=== PATIENT | female | born 1995 | race Caucasian/White ===

== ENCOUNTER 2017-06-05 01:24 | Emergency (ER) | payer SELFPAY ==
[2017-06-05 02:48] LABS: #Eosinphils 0.1 thou/uL (0.0-0.7); #Lymphocytes 1.5 thou/uL (1.20-3.40); #Monocytes 0.8 thou/uL (0.11-0.59); #Neutrophils 12.2 thou/uL (1.40-6.50); %Basophils 0.2 % (0.0-1.0); %Eosinophils 0.5 % (0.0-10.0); %Lymphocytes 10.5 % (28.0-48.0); %Monocytes 5.4 % (0.0-4.0); %Neutrophils 83.4 % (31.0-61.0); Hemoglobin 13.9 g/dL (12.0-16.0); Mean Corpuscular HGB CONC 33.7 g/dL (32.0-36.0); Mean Corpuscular Hemoglobin 31.2 pg (25.0-35.0); Mean Corpuscular Volume 92.5 fl (77.0-87.0); Mean Platelet Volume 7.9 fL (7.4-10.4); Platelet Count 270 thou/uL (130-400); RBC Distribution Width 11.4 % (11.5-14.5); Red Blood Cell (RBC) Count 4.47 mill/uL (4.00-5.20); White Blood Cell (WBC) Count 14.6 thou/uL (4.8-10.8)
[2017-06-05 03:07] LABS: Pregnancy Test - Urine (BHCG) Negative (Negative); Pregu Control Background? CLEAR/WHITE (CLR/WHITE); Pregu Control Bar Appear? YES (CONTROL BAR)
[2017-06-05 03:08] LABS: Bilirubin Negative (Negative); Blood, Urine Large (Negative); Clarity CLOUDY (Clear); Glucose, Urine (Dipstick) Negative (Negative); Leukocyte Small (Negative); Nitrite Negative (Negative); Protein, Urine (Dipstick) 30 mg/dL (Neg-Trace); Specific Gravity, Urine 1.024 (1.002-1.036); Urobilinogen 0.2 mg/dL (0.2-1.0); pH, Urine 5.5 (5.0-9.0)
[2017-06-05 03:08] LABS: ALT (SGPT) 21 U/L (8-55); AST (SGOT) 26 U/L (5-34); Albumin 4.9 g/dL (3.5-5.0); Alkaline Phosphatase 83 U/L (40-150); Anion Gap 16 mmol/L (10-20); BUN (Urea Nitrogen) 15 mg/dL (7.0-18.7); Bilirubin, Total 0.6 mg/dL (0.2-1.2); Calc. Creatinine Clearance 0 mL/min (70-130); Calcium 10.4 mg/dL (7.8-10.44); Carbon Dioxide 21 mmol/L (22-29); Chloride 105 mmol/L (98-107); Estimated GFR-MDRD 79; Globulin 3.3 g/dL (2.4-3.5); Glucose 127 mg/dL (70-105); Lipase 14 U/L (8-78); Potassium 3.7 mmol/L (3.5-5.1); Protein, Total 8.2 g/dL (6.0-8.3); Sodium 138 mmol/L (136-145)
[2017-06-05 03:09] LABS: Bacteria/HPF None Seen HPF (None Seen); Hyaline Casts/LPF 4-6 HYALINE CAST LPF (0-3 Hyaline); Pathc Cast-AUWi Flag 0.94 (0-2.49); RBC/HPF GREATER THAN 50-TNTC HPF (0-3)
[2017-06-05 03:11] LABS: Specific Gravity 1.024 (1.002-1.036)
[2017-06-05] MEDS ORDERED: Ketorolac Tromethamine 30 MG/ML VIAL ONE (04:30)
[2017-06-05] MEDS ORDERED: Ondansetron HCl/PF 4 MG/2 ML Vial ONE (04:30)
--- NOTE | 2017-06-05 08:03 | CT ---
PRELIMINARY REPORT/[facility]/EMERGENCY AFTER HOURS PROCEDURE: EXAM: CT Abdomen and Pelvis Without Intravenous Contrast CLINICAL HISTORY: 21 years old, female; Pain; Abdominal pain; Generalized; Patient HX: R/O stone TECHNIQUE: Axial computed tomography images of the abdomen and pelvis without intravenous contrast. Coronal reformatted images were created and reviewed. COMPARISON: No relevant prior studies available. FINDINGS: Lower thorax: No acute findings. ABDOMEN: Liver: No acute findings. Gallbladder and bile ducts: No acute findings. No calcified stones. No ductal dilation. Pancreas: No acute findings. No ductal dilation. Spleen: No acute findings. No splenomegaly. Adrenals: No acute findings. No mass. Kidneys and ureters: Two, approximately 2 mm nonobstructing right renal stones. Solitary 1-2 mm midpo le left renal stone. Stomach and bowel: No acute findings. No obstruction. No mucosal thickening. Appendix: No findings to suggest acute appendicitis. PELVIS: Bladder: No acute findings. No stones. Reproductive: Unremarkable as visualized. ABDOMEN and PELVIS: Intraperitoneal space: No acute findings. No free air. No significant fluid collection. Bones/joints: No acute fracture. No dislocation. Soft tissues: No acute findings. Vasculature: No acute findings. No abdominal aortic aneurysm. Lymph nodes: No acute findings. No enlarged lymph nodes. IMPRESSION: Nonobstructing renal stones. Thank you for allowing us to participate in the care of your patient. Dictated and Authenticated by: Deidre Barreto MD 06/05/2017 5:23 AM Central Time ([place] & [place]) FINAL REPORT EMERGENT AFTER HOURS CT OF THE ABDOMEN AND PELVIS WITHOUT CONTRAST: FINDINGS/IMPRESSION: I agree with the findings and impression given in the preliminary report per [facility] physician. Bilateral nonobstructing renal calcifications. POS: [facility]
== END 2017-06-05 06:30 | disposition home or self-care (01) ==
LOC: ERS 01:24
DX: R10.31 Right lower quadrant pain (principal)
CPT/HCPCS: 36415; 74176; 80053; 81003; 81015; 81025; 82150; 83690; 85025; 96361; 96374; 96375; J1885; J2405

== ENCOUNTER 2020-09-13 22:15 | Inpatient (IN) | payer OTHER, SELFPAY ==
[~2020-09-13 22:15] MED LIST: Iopamidol-370 76% 500 ML 1 ML ONE
[2020-09-13] MEDS ORDERED: Ondansetron PF 4 MG/2 ML Vial ONE (22:57)
[2020-09-13] MEDS ORDERED: Morphine 4 MG/ML VIAL ONE (22:57)
[2020-09-13 23:20] LABS: BHCG - Serum Negative (NEGATIVE); Pregs Control Background? CLEAR/WHITE (CLR/WHITE); Pregs Control Bar Appear? YES (CONTROL BAR)
[2020-09-13 23:26] LABS: Hemoglobin 13.1 g/dL (12.0-16.0); Mean Corpuscular HGB CONC 34.9 g/dL (32.0-36.0); Mean Corpuscular Hemoglobin 34.3 pg (27.0-31.0); Mean Corpuscular Volume 98.4 fL (78.0-98.0); Platelet Count 304 thou/uL (130-400); RBC Distribution Width 11.5 % (11.5-14.5); Red Blood Cell (RBC) Count 3.81 mill/uL (4.20-5.40); White Blood Cell (WBC) Count 17.8 thou/uL (4.8-10.8)
[2020-09-13 23:47] LABS: Lymphocytes 15 % (21-51); MDiff Complete? YES; Monocytes 4 % (0-10); Neutrophil 79 % (42-75); Platelet Morphology Comment Appears Adequate; Reactive Lymphocytes 2 % (0-10)
[2020-09-14] MEDS ORDERED: Piperacillin/Tazobactam 3.375 GM VIAL ONE (00:24)
[2020-09-14] MEDS ORDERED: Morphine 4 MG/ML VIAL ONE (00:24)
[2020-09-14] MEDS ORDERED: Boostrix 0.5 ML (Tdap) VIAL ONE (00:24)
[2020-09-14 00:43] LABS: ALT (SGPT) 13 U/L (8-55); AST (SGOT) 22 U/L (5-34); Albumin 4.1 g/dL (3.5-5.0); Alcohol Less than 10 mg/dL (Less than 10); Alkaline Phosphatase 57 U/L (40-110); Anion Gap 15 mmol/L (10-20); BUN (Urea Nitrogen) 9 mg/dL (7.0-18.7); Bilirubin, Total 0.3 mg/dL (0.2-1.2); Calc. Creatinine Clearance 0 mL/min (70-130); Calcium 8.5 mg/dL (7.8-10.44); Carbon Dioxide 19 mmol/L (22-29); Chloride 106 mmol/L (98-107); Globulin 2.3 g/dL (2.4-3.5); Glucose 170 mg/dL (70-105); Lipase 45 U/L (8-78); Protein, Total 6.4 g/dL (6.0-8.3); Sodium 137 mmol/L (136-145)
[2020-09-14] MEDS ORDERED: Midazolam HCl 2 mg/2 ml Vial ONE (01:15)
[2020-09-14] MEDS ORDERED: Fentanyl 250 MCG/5 ML VIAL ONE (01:15)
[2020-09-14] MEDS ORDERED: Ondansetron PF 4 MG/2 ML Vial ONE (01:26)
[2020-09-14] MEDS ORDERED: Ketorolac Tromethamine 30 MG/ML VIAL ONE (01:26)
[2020-09-14] MEDS ORDERED: PROPOFOL 200 MG/20 ML VIAL ONE (01:26)
[2020-09-14] MEDS ORDERED: Dexamethasone 20 MG/5 ML VIAL ONE (01:26)
[2020-09-14] MEDS ORDERED: Succinylcholine 200 MG/10 ml SYRINGE FS ONE (01:26)
[2020-09-14] MEDS ORDERED: Lidocaine 1% PF 5 ML VIAL ONE (01:26)
[2020-09-14] MEDS ORDERED: Rocuronium Bromide 10 MG/ML (10ML VIAL) ONE (01:26)
[2020-09-14] MEDS ORDERED: Glycopyrrolate 0.2 MG/ML 5 ML SYRINGE ONE (01:26)
[2020-09-14 01:32] LABS: SARS-CoV-2 NAA Rapid Test Not Detected (NotDetected)
[2020-09-14] MEDS ORDERED: diphenhydrAMINE 25 MG CAP PO PRN (01:39)
[2020-09-14] MEDS ORDERED: Zolpidem Tartrate 5 MG TAB PO PRN (01:39)
[2020-09-14] MEDS ORDERED: Naloxone HCl 0.4 mg/ml Vial IV PRN (01:39)
[2020-09-14] MEDS ORDERED: diphenhydrAMINE 50 MG/ML VIAL IM PRN (01:39)
[2020-09-14] MEDS ORDERED: Promethazine HCl 25 MG/ML VIAL SLOW IVP PRN (01:39)
[2020-09-14] MEDS ORDERED: diphenhydrAMINE 50 MG/ML VIAL IVP PRN (01:39)
[2020-09-14] MEDS ORDERED: fentaNYL Citrate/PF 2,000 MCG in Sodium Chloride 0.9% 60 ML IV PRN (01:39)
[2020-09-14] MEDS ORDERED: Ondansetron HCl/PF 4 MG/2 ML Vial IVP PRN (01:39)
[2020-09-14] MEDS ORDERED: Promethazine HCl 25 MG/ML VIAL IM PRN ×2 (01:39)
[2020-09-14] MEDS ORDERED: Communication Order-Pharmacy FS SCH (01:45)
[2020-09-14] MEDS ORDERED: Dextrose 5% in Water 1,000 ML IV PRN (03:28)
[2020-09-14] MEDS ORDERED: Meperidine HCl/PF 25 MG/ML VIAL ONE (03:28)
[2020-09-14] MEDS ORDERED: Dextrose 50% Abboject 50 ML SYRINGE SLOW IVP PRN (03:28)
[2020-09-14] MEDS ORDERED: Ondansetron PF 4 MG/2 ML Vial IVP PRN (03:28)
[2020-09-14 05:21] LABS: Hemoglobin 12.7 g/dL (12.0-16.0); Mean Corpuscular HGB CONC 33.3 g/dL (32.0-36.0); Mean Corpuscular Hemoglobin 33.3 pg (27.0-31.0); Platelet Count 206 thou/uL (130-400); RBC Distribution Width 11.7 % (11.5-14.5); Red Blood Cell (RBC) Count 3.81 mill/uL (4.20-5.40); White Blood Cell (WBC) Count 16.1 thou/uL (4.8-10.8)
[2020-09-14] MEDS: D5 1/2 NS w/20 mEq KCL 1,000 ML IV SCH ×3 (05:34→20:07)
[2020-09-14 05:35] LABS: Anion Gap 12 mmol/L (10-20); BUN (Urea Nitrogen) 7 mg/dL (7.0-18.7); Calc. Creatinine Clearance 0 mL/min (70-130); Calcium 7.9 mg/dL (7.8-10.44); Carbon Dioxide 18 mmol/L (22-29); Chloride 112 mmol/L (98-107); Glucose 147 mg/dL (70-105); Sodium 138 mmol/L (136-145)
[2020-09-14 05:41] LABS: Band 26 % (5-11); Lymphocytes 4 % (21-51); MDiff Complete? YES; Metamyelocyte 1 % (0-0); Monocytes 9 % (0-10); Neutrophil 60 % (42-75); Platelet Morphology Comment Appears Adequate
[2020-09-14 05:46] VITALS: BMI 20.2
[2020-09-14] MEDS: Famotidine/PF 20 mg/2ml Vial SLOW IVP SCH ×2 (09:03→20:04)
[2020-09-14] MEDS: Enoxaparin Sodium 40 MG/0.4 ML SYRINGE SC SCH (09:03)
[2020-09-14] MEDS: Ketorolac Tromethamine 30 MG/ML VIAL IVP SCH ×3 (09:04→20:05)
[2020-09-14] MEDS ORDERED: Docusate 100 MG CAP PO PRN (12:00)
[2020-09-14] MEDS: Ondansetron PF 4 MG/2 ML Vial IVP PRN (12:27)
[2020-09-14] MEDS: Senokot S 8.6-50 MG TAB PO SCH (20:05)
[2020-09-14] MEDS: HYDROcodone/Acetaminophen 10/325 mg Tablet PO PRN (23:42)
[2020-09-15] MEDS: D5 1/2 NS w/20 mEq KCL 1,000 ML IV SCH ×2 (01:32→11:13)
[2020-09-15] MEDS: Ketorolac Tromethamine 30 MG/ML VIAL IVP SCH ×4 (04:01→20:31)
[2020-09-15] MEDS: HYDROcodone/Acetaminophen 10/325 mg Tablet PO PRN ×4 (06:20→19:22)
[2020-09-15] MEDS: Enoxaparin Sodium 40 MG/0.4 ML SYRINGE SC SCH (08:23)
[2020-09-15] MEDS: Senokot S 8.6-50 MG TAB PO SCH ×2 (08:23→20:31)
[2020-09-15] MEDS: Famotidine/PF 20 mg/2ml Vial SLOW IVP SCH ×2 (08:23→20:31)
[2020-09-15] MEDS: Ondansetron PF 4 MG/2 ML Vial IVP PRN (19:24)
[2020-09-15] MEDS: Lactated Ringer's 1,000 ML IV SCH (20:41)
[2020-09-16] MEDS: Ketorolac Tromethamine 30 MG/ML VIAL IVP SCH ×2 (03:01→07:59)
[2020-09-16] MEDS: Lactated Ringer's 1,000 ML IV SCH ×3 (03:05→20:43)
[2020-09-16 05:25] LABS: #Lymphocytes 1.9 thou/uL (1.20-3.40); #Monocytes 0.5 thou/uL (0.11-0.59); #Neutrophils 3.8 thou/uL (1.40-6.50); %Basophils 0.7 % (0.0-1.0); %Eosinophils 0.6 % (0.0-10.0); %Lymphocytes 29.7 % (21.0-51.0); %Monocytes 7.5 % (0.0-10.0); %Neutrophils 61.4 % (42.0-75.0); Hemoglobin 9.6 g/dL (12.0-16.0); Mean Corpuscular HGB CONC 34.7 g/dL (32.0-36.0); Mean Corpuscular Hemoglobin 34.8 pg (27.0-31.0); Mean Platelet Volume 8.3 fL (7.4-10.4); Platelet Count 142 thou/uL (130-400); RBC Distribution Width 11.6 % (11.5-14.5); Red Blood Cell (RBC) Count 2.75 mill/uL (4.20-5.40); White Blood Cell (WBC) Count 6.2 thou/uL (4.8-10.8)
[2020-09-16 05:44] LABS: Anion Gap 10 mmol/L (10-20); BUN (Urea Nitrogen) 6 mg/dL (7.0-18.7); Calc. Creatinine Clearance 96 mL/min (70-130); Calcium 8.3 mg/dL (7.8-10.44); Carbon Dioxide 20 mmol/L (22-29); Chloride 110 mmol/L (98-107); Glucose 77 mg/dL (70-105); Magnesium 1.7 mg/dL (1.6-2.6); Phosphorus 2.7 mg/dL (2.3-4.7); Potassium 3.9 mmol/L (3.5-5.1); Sodium 136 mmol/L (136-145)
[2020-09-16] MEDS: HYDROcodone/Acetaminophen 10/325 mg Tablet PO PRN ×4 (07:58→20:39)
[2020-09-16] MEDS: Ferrous Sulfate 325 MG TAB PO SCH ×2 (07:59→17:47)
[2020-09-16] MEDS: Enoxaparin Sodium 40 MG/0.4 ML SYRINGE SC SCH (07:59)
[2020-09-16] MEDS: Senokot S 8.6-50 MG TAB PO SCH ×2 (07:59→20:40)
[2020-09-16] MEDS: Ascorbic Acid 500 mg Chewable Tablet PO SCH ×2 (07:59→20:41)
[2020-09-16] MEDS: Famotidine/PF 20 mg/2ml Vial SLOW IVP SCH ×2 (07:59→20:40)
[2020-09-16] MEDS: Ondansetron PF 4 MG/2 ML Vial IVP PRN ×2 (09:30→19:14)
[2020-09-17] MEDS: HYDROcodone/Acetaminophen 10/325 mg Tablet PO PRN ×4 (03:10→15:03)
[2020-09-17] MEDS: Lactated Ringer's 1,000 ML IV SCH ×2 (03:10→09:05)
[2020-09-17] MEDS: Ferrous Sulfate 325 MG TAB PO SCH ×2 (09:00→17:48)
[2020-09-17] MEDS: Ondansetron PF 4 MG/2 ML Vial IVP PRN ×2 (09:00→18:48)
[2020-09-17] MEDS: Senokot S 8.6-50 MG TAB PO SCH ×2 (09:01→21:42)
[2020-09-17] MEDS: Enoxaparin Sodium 40 MG/0.4 ML SYRINGE SC SCH (09:01)
[2020-09-17] MEDS: Ascorbic Acid 500 mg Chewable Tablet PO SCH ×3 (09:01→21:43)
[2020-09-17] MEDS: Famotidine 20 MG TAB PO SCH ×2 (09:01→21:43)
[2020-09-17] MEDS: Polyethylene Glycol 3350 17 GM Packet PO SCH (09:04)
[2020-09-17] MEDS: traMADol HCl 50 MG TAB PO SCH (17:47)
[2020-09-17] MEDS: Acetaminophen 500 MG TAB PO SCH (17:48)
[2020-09-17] MEDS: traMADol HCl 50 MG TAB PO PRN (21:47)
[2020-09-18] MEDS: traMADol HCl 50 MG TAB PO SCH ×5 (00:27→23:56)
[2020-09-18] MEDS: Acetaminophen 500 MG TAB PO SCH ×5 (01:40→23:56)
[2020-09-18] MEDS: Ondansetron PF 4 MG/2 ML Vial IVP PRN ×2 (05:46→10:57)
[2020-09-18] MEDS: Lactated Ringer's 1,000 ML IV SCH ×3 (07:20→12:55)
[2020-09-18] MEDS: Famotidine 20 MG TAB PO SCH ×2 (08:10→20:05)
[2020-09-18] MEDS: Enoxaparin Sodium 40 MG/0.4 ML SYRINGE SC SCH (08:10)
[2020-09-18] MEDS: Ferrous Sulfate 325 MG TAB PO SCH ×2 (08:10→17:15)
[2020-09-18] MEDS: Polyethylene Glycol 3350 17 GM Packet PO SCH (08:10)
[2020-09-18] MEDS: Ascorbic Acid 500 mg Chewable Tablet PO SCH ×2 (08:10→20:05)
[2020-09-18] MEDS: Senokot S 8.6-50 MG TAB PO SCH ×2 (08:10→20:05)
[2020-09-18] MEDS: traMADol HCl 50 MG TAB PO PRN (15:33)
[2020-09-19 05:30] LABS: #Eosinphils 0.1 thou/uL (0.0-0.7); #Lymphocytes 1.6 thou/uL (1.20-3.40); #Monocytes 0.9 thou/uL (0.11-0.59); %Basophils 0.7 % (0.0-1.0); %Eosinophils 1.3 % (0.0-10.0); %Monocytes 13.8 % (0.0-10.0); %Neutrophils 60.2 % (42.0-75.0); Hemoglobin 11.7 g/dL (12.0-16.0); Mean Corpuscular HGB CONC 33.9 g/dL (32.0-36.0); Mean Corpuscular Hemoglobin 32.9 pg (27.0-31.0); Mean Platelet Volume 7.3 fL (7.4-10.4); Platelet Count 259 thou/uL (130-400); RBC Distribution Width 11.3 % (11.5-14.5); Red Blood Cell (RBC) Count 3.54 mill/uL (4.20-5.40); White Blood Cell (WBC) Count 6.6 thou/uL (4.8-10.8)
[2020-09-19] MEDS: traMADol HCl 50 MG TAB PO SCH ×2 (05:46→11:14)
[2020-09-19] MEDS: Acetaminophen 500 MG TAB PO SCH ×2 (05:47→11:13)
[2020-09-19] MEDS: Enoxaparin Sodium 40 MG/0.4 ML SYRINGE SC SCH (08:35)
[2020-09-19] MEDS: Ondansetron PF 4 MG/2 ML Vial IVP PRN (08:35)
[2020-09-19] MEDS: Polyethylene Glycol 3350 17 GM Packet PO SCH (08:35)
[2020-09-19] MEDS: Senokot S 8.6-50 MG TAB PO SCH (08:36)
[2020-09-19] MEDS: Ferrous Sulfate 325 MG TAB PO SCH (08:36)
[2020-09-19] MEDS: Famotidine 20 MG TAB PO SCH (08:36)
[2020-09-19] MEDS: Ascorbic Acid 500 mg Chewable Tablet PO SCH (08:36)
[2020-09-19] MEDS ORDERED: Bisacodyl 10 MG SUPP PR PRN (09:53)
[2020-09-19 12:32] VITALS: BP 121/70; TEMP 98
== END 2020-09-19 12:30 | disposition home or self-care (01) | DRG 329 ==
LOC: ERS 22:15 → SDC/OP 09-14 01:24 → SURG A 09-14 03:28
PROVIDERS: ADMIT Surgery; ATTEND Surgery
PROC: 0DQA0ZZ Repair Jejunum, Open Approach (ICD-10-PCS; principal; 2020-09-14)
PROC: 0DQK0ZZ Repair Ascending Colon, Open Approach (ICD-10-PCS; 2020-09-14)
PROC: 0DB80ZZ Excision of Small Intestine, Open Approach (ICD-10-PCS; 2020-09-14)
DX: S36.438A Laceration of other part of small intestine, initial encounter (principal); K65.0 Generalized (acute) peritonitis; S36.590A Other injury of ascending [right] colon, initial encounter; S36.892A Contusion of other intra-abdominal organs, initial encounter; Z20.822 Contact with and (suspected) exposure to COVID-19; Z23 Encounter for immunization; K21.9 Gastro-esophageal reflux disease without esophagitis; M26.609 Unspecified temporomandibular joint disorder, unspecified side; V49.88XA Car occupant (driver) (passenger) injured in other specified transport accidents, initial encounter; Y92.410 Unspecified street and highway as the place of occurrence of the external cause; Z87.891 Personal history of nicotine dependence
CPT/HCPCS: 36415; 70450; 71260; 72125; 74019; 74177; 80048; 80053; 80307; 83690; 83735; 84100; 84703; 85025; 86850; 86900; 86901; 88307; 90471; 90715; 96365; 96375; 96376; J1100; J1650; J1885; J2175; J2250; J2270; J2405; J2543; J2704; J3010; J3480; Q9967; S0028; U0002

== ENCOUNTER 2021-10-20 12:47 | Emergency (ER) | payer BC, SELFPAY ==
[2021-10-20] MEDS ORDERED: Ondansetron ODT 4 MG TAB ONE (13:38)
[2021-10-20 14:23] LABS: Bacteria/HPF None Seen HPF (None Seen); Bilirubin Negative (Negative); Blood, Urine Negative (Negative); Clarity Clear (Clear); Glucose, Urine (Dipstick) Normal (Negative); Ketone, Urine Greater than 150 mg/dL (Negative); Leukocyte Negative Leu/uL (Negative); Nitrite Negative (Negative); Pregnancy Test - Urine (BHCG) POSITIVE (Negative); Pregu Control Background? CLEAR/WHITE (CLR/WHITE); Pregu Control Bar Appear? YES (CONTROL BAR); Protein, Urine (Dipstick) 30 mg/dL (Neg-Trace); RBC/HPF 0-3 HPF (0-3); Specific Gravity 1.033 (1.002-1.036); Specific Gravity, Urine 1.033 (1.002-1.036); Squamous Epithelial 0-3 HPF (0-3); WBC/HPF 0-3 HPF (0-3)
== END 2021-10-20 14:53 | disposition home or self-care (01) ==
LOC: ERS 12:47
DX: O21.9 Vomiting of pregnancy, unspecified (principal); Z3A.01 Less than 8 weeks gestation of pregnancy
CPT/HCPCS: 81003; 81015; 81025; 99284; Q0162